=== PATIENT | male | born 1960 | race African-American/Black ===

== ENCOUNTER 2023-05-05 08:08 | Emergency (ER) | payer MEDICARE, OTHER ==
[~2023-05-05] VITALS: Ht 177.8 cm; Wt 85.0 kg
[~2023-05-05 08:08] MED LIST: AMLO2.5T45 MT; FLUO10CA28 MT; HYDR-4135 PO; HYDR12.54 MT; KEPP500 MT; LISI2.5T47 MT; SPIR25TA6 PO; TRAZ150T78 MT
[2023-05-05 08:12] VITALS: TEMP 98; O2SAT 96
[2023-05-05 09:38] LABS: BASOPHILS % 0.8 % (0.0-2.0); EOSINOPHILS % 0.7 % (0.0-5.0); HEMATOCRIT. 43.4 % (42.0-52.0); HEMOGLOBIN. 14.3 g/dL (14.0-18.0); LYMPHOCYTES % 9.2 % (20.0-50.0); MEAN CORPUSCULAR HEMOGLOBIN 30.9 pg (28.0-32.0); MEAN CORPUSCULAR HGB CONC 33.1 g/dL (31.0-37.0); MEAN CORPUSCULAR VOLUME 93.3 fL (80.0-94.0); MEAN PLATELET VOLUME 7.9 fl (7.4-10.4); MONOCYTES % 5.5 % (2.0-8.0); NEUTROPHILS % 83.8 % (40.0-76.0); PLATELET 257 x1000/uL (130-400); RED BLOOD CELL COUNT 4.65 mill/uL (4.7-6.1); RED CELL DISTRIBUTION WIDTH 14.1 % (11.6-14.6); WHITE BLOOD COUNT 8.3 x1000/uL (4.5-11.0)
[2023-05-05 09:44] LABS: CHLORIDE 104 mEq/L (98-107); INDEX HEMOLYSI 1 (1-3); INDEX ICTERIC 1 (1-4); INDEX LIPEMIC 1 (1-3); SODIUM 139 mEq/L (136-145)
[2023-05-05] MEDS ORDERED: LEVETIRACETAM 500MG PREMIX 100 ML IV ONE ×2 (09:45)
[2023-05-05] MEDS ORDERED: LORAZEPAM 2MG/ML CPJ IV ONE (09:45)
[2023-05-05 09:54] LABS: ALANINE AMINOTRANSFERASE 15 IU/L (13-61); ASPARTATE AMINOTRANSFERASE 14 IU/L (15-37); BILIRUBIN TOTAL 0.8 mg/dL (0.1-1.0); CALCIUM 8.9 mg/dL (8.5-10.1); CARBON DIOXIDE 26 mEq/L (21-32); GLUCOSE 164 mg/dL (70-105); NT PRO B-TYPE NATRIURETIC PEP 95 pg/mL (5-125); PROTEIN TOTAL 7.4 g/dL (6.0-8.3); TROPONIN I HIGH SENSITIVITY 13 ng/L (<78); UREA NITROGEN BLOOD 17 mg/dL (7-21)
[2023-05-05] MEDS ORDERED: KEPP500 MT (13:30)
[2023-05-05 14:11] VITALS: BP 154/76; PULSE 83; RESP 16
== END 2023-05-05 14:12 | disposition home or self-care (01) ==
LOC: ER 08:08
DX: R56.9 Unspecified convulsions (principal); J45.909 Unspecified asthma, uncomplicated; I10 Essential (primary) hypertension; I25.2 Old myocardial infarction; Z86.73 Personal history of transient ischemic attack (TIA), and cerebral infarction without residual deficits; Z79.899 Other long term (current) drug therapy
CPT/HCPCS: 99285; 96365; 70450; 71045; 96366; 96375; 80053; 83880; 85025; 84484; 36415; 93005; J1953; J2060

== ENCOUNTER 2023-07-22 22:40 | Emergency (ER) | payer OTHER, MEDICAID ==
[~2023-07-22] VITALS: Ht 177.8 cm; Wt 100.0 kg
[2023-07-22 22:53] VITALS: O2SAT 100
[2023-07-22] MEDS ORDERED: LEVETIRACETAM 500MG PREMIX 100 ML IV ONE (23:00)
[2023-07-22 23:15] VITALS: TEMP 98.4
[2023-07-22 23:42] LABS: HEMATOCRIT 35.6 % (42.0-52.0); HEMOGLOBIN 11.5 g/dL (14.0-18.0); MEAN CORPUSCULAR HEMOGLOBIN 29.5 pg (28.0-32.0); MEAN CORPUSCULAR HGB CONC 32.2 g/dL (31.0-37.0); MEAN CORPUSCULAR VOLUME 91.7 fL (80.0-94.0); PLATELET 277 x1000/uL (130-400); RED BLOOD CELL COUNT 3.88 mill/uL (4.7-6.1); RED CELL DISTRIBUTION WIDTH 12.4 % (11.6-14.6)
[2023-07-22 23:49] LABS: CHLORIDE 104 mEq/L (98-107); INDEX HEMOLYSI 1 (1-3); INDEX ICTERIC 1 (1-4); INDEX LIPEMIC 1 (1-3); POTASSIUM 3.1 mEq/L (3.5-5.1); SODIUM 140 mEq/L (136-145)
[2023-07-22 23:55] LABS: ALANINE AMINOTRANSFERASE 16 IU/L (13-61); ALBUMIN 3.9 g/dL (3.4-5.0); ASPARTATE AMINOTRANSFERASE 14 IU/L (15-37); BILIRUBIN TOTAL 0.6 mg/dL (0.1-1.0); CARBON DIOXIDE 28 mEq/L (21-32); CREATININE 1.1 mg/dL (0.6-1.3); ETHANOL BLOOD < 10 mg/dL (<10); GLUCOSE 114 mg/dL (70-105); PROTEIN TOTAL 7.2 g/dL (6.0-8.3); UREA NITROGEN BLOOD 12 mg/dL (7-21)
[2023-07-23] MEDS ORDERED: POTASSIUM CHLORIDE 20MEQ TABLET SR PO NR (00:15)
[2023-07-23 03:25] VITALS: BP 151/83; PULSE 73; RESP 25
== END 2023-07-23 04:00 | disposition home or self-care (01) ==
LOC: ER 22:40
DX: R56.9 Unspecified convulsions (principal); Z86.73 Personal history of transient ischemic attack (TIA), and cerebral infarction without residual deficits; Z79.899 Other long term (current) drug therapy
CPT/HCPCS: 80053; 80320; 85027; 36415; 96365; 99284; J1953; G0480

== ENCOUNTER 2024-03-04 13:31 | Emergency (ER) | payer OTHER, MEDICAID ==
[~2024-03-04] VITALS: Ht 193 cm; Wt 72.6 kg
[~2024-03-04 13:31] MED LIST changes: +AMLO10TA80 PO; -AMLO2.5T45 MT; +ASPI-1497 PO; +ATOR-2 PO; -FLUO10CA28 MT; -HYDR-4135 PO; -HYDR12.54 MT; +HYDR12.54 PO; +HYDR50TA39 PO; -KEPP500 MT; +LEVE750T4 MT; +LISI-186 PO; -LISI2.5T47 MT; +ZINC25CA PO
[2024-03-04 13:47] VITALS: O2SAT 98
[2024-03-04 14:58] LABS: BASOPHILS % 1.2 % (0.0-2.0); EOSINOPHILS % 0.7 % (0.0-5.0); HEMATOCRIT. 34.3 % (42.0-52.0); HEMOGLOBIN. 11.3 g/dL (14.0-18.0); LYMPHOCYTES % 21.1 % (20.0-50.0); MEAN CORPUSCULAR HEMOGLOBIN 29.8 pg (28.0-32.0); MEAN CORPUSCULAR HGB CONC 32.9 g/dL (31.0-37.0); MEAN CORPUSCULAR VOLUME 90.4 fL (80.0-94.0); MEAN PLATELET VOLUME 8.2 fl (7.4-10.4); MONOCYTES % 6.6 % (2.0-8.0); NEUTROPHILS % 70.4 % (40.0-76.0); PLATELET 227 x1000/uL (130-400); RED CELL DISTRIBUTION WIDTH 12.7 % (11.6-14.6); WHITE BLOOD COUNT 5.7 x1000/uL (4.5-11.0)
[2024-03-04 15:04] LABS: CHLORIDE 107 mEq/L (98-107); POTASSIUM 3.3 mEq/L (3.5-5.1); SODIUM 143 mEq/L (136-145)
[2024-03-04 15:05] LABS: CALCIUM 9.5 mg/dL (8.7-10.4); CARBON DIOXIDE 34 mEq/L (21-32)
[2024-03-04 15:10] LABS: CREATININE 0.9 mg/dL (0.6-1.3); GLUCOSE 91 mg/dL (70-105); INR 1.1; PROTHROMBIN TIME 12.1 sec (9.6-11.0); UREA NITROGEN BLOOD 13 mg/dL (9-23)
[2024-03-04 15:11] LABS: ETHANOL BLOOD < 10 mg/dL (<10)
[2024-03-04] MEDS: ACETAMINOPHEN 325MG TABLET PO STA (15:14)
[2024-03-04] MEDS: POTASSIUM CHLORIDE 20MEQ TABLET SR PO ONE (16:08)
[2024-03-04 17:16] VITALS: BP 121/68; PULSE 60; RESP 16; TEMP 98.4
== END 2024-03-04 17:18 | disposition home or self-care (01) ==
LOC: ER 13:31
DX: G40.A09 Absence epileptic syndrome, not intractable, without status epilepticus (principal); S09.90XA Unspecified injury of head, initial encounter; I10 Essential (primary) hypertension; Z79.82 Long term (current) use of aspirin; Z79.899 Other long term (current) drug therapy; Z86.73 Personal history of transient ischemic attack (TIA), and cerebral infarction without residual deficits; V49.9XXA Car occupant (driver) (passenger) injured in unspecified traffic accident, initial encounter; Y93.89 Activity, other specified; Y92.89 Other specified places as the place of occurrence of the external cause; Y99.8 Other external cause status
CPT/HCPCS: 36415; 80048; 80320; 85025; 99284; G0480

== ENCOUNTER 2024-09-24 11:41 | Emergency (ER) | payer OTHER, MEDICAID ==
[~2024-09-24] VITALS: Ht 193 cm; Wt 90.7 kg
[2024-09-24 11:46] VITALS: BP 144/88; O2SAT 99
[2024-09-24 13:05] VITALS: PULSE 88; RESP 18; TEMP 36.72516
[2024-09-24 13:52] LABS: BASOPHILS % 1.2 % (0.0-2.0); CHLORIDE 108 mEq/L (98-107); EOSINOPHILS % 1.4 % (0.0-5.0); HEMATOCRIT. 34.2 % (42.0-52.0); HEMOGLOBIN. 11.2 g/dL (14.0-18.0); LYMPHOCYTES % 23.3 % (20.0-50.0); MEAN CORPUSCULAR HEMOGLOBIN 30.2 pg (28.0-32.0); MEAN CORPUSCULAR HGB CONC 32.6 g/dL (31.0-37.0); MEAN CORPUSCULAR VOLUME 92.6 fL (80.0-94.0); MEAN PLATELET VOLUME 7.8 fl (7.4-10.4); MONOCYTES % 8.5 % (2.0-8.0); NEUTROPHILS % 65.6 % (40.0-76.0); PLATELET 276 x1000/uL (130-400); POTASSIUM 3.1 mEq/L (3.5-5.1); RED BLOOD CELL COUNT 3.69 mill/uL (4.7-6.1); RED CELL DISTRIBUTION WIDTH 12.9 % (11.6-14.6); SODIUM 142 mEq/L (136-145); WHITE BLOOD COUNT 5.4 x1000/uL (4.5-11.0)
[2024-09-24 13:53] LABS: CARBON DIOXIDE 27 mEq/L (21-32)
[2024-09-24 13:54] LABS: CALCIUM 9.8 mg/dL (8.7-10.4)
[2024-09-24 13:58] LABS: CREATININE 1.1 mg/dL (0.6-1.3); TROPONIN I HIGH SENSITIVITY 17 ng/L (3.0-53)
[2024-09-24 13:59] LABS: GLUCOSE 112 mg/dL (70-105); UREA NITROGEN BLOOD 13 mg/dL (9-23)
[2024-09-24] MEDS ORDERED: LAMO25TA71 MT (15:02)
[2024-09-24] MEDS: POTASSIUM CHLORIDE 20MEQ/PACKET PO ONE (15:11)
== END 2024-09-24 15:15 | disposition left against medical advice (07) ==
LOC: ER 12:08
DX: R56.9 Unspecified convulsions (principal); R07.89 Other chest pain; E87.6 Hypokalemia; Z79.899 Other long term (current) drug therapy
CPT/HCPCS: 36415; 71045; 80048; 82542; 82962; 84484; 85025; 93005; 99285

== ENCOUNTER 2025-03-04 03:29 | Inpatient (IN) | payer OTHER, MEDICARE ==
[~2025-03-04] VITALS: Ht 193 cm; Wt 64.9 kg
[~2025-03-04 03:29] MED LIST changes: +ASPI-1160 PO; +KEPP500 PO; +LAM25 PO; -LEVE750T4 MT; +LIP40 PO; +MAGN400T26 MT; +MEGE20TA7 MT; +METO-396 MT; +RIBO100T9 MT; +TOPUD PO
[2025-03-04 04:05] LABS: BASOPHILS % 0.8 % (0.0-2.0); HEMATOCRIT. 39.3 % (42.0-52.0); HEMOGLOBIN. 12.6 g/dL (14.0-18.0); LYMPHOCYTES % 8.1 % (20.0-50.0); MEAN CORPUSCULAR HEMOGLOBIN 28.4 pg (28.0-32.0); MEAN CORPUSCULAR VOLUME 88.7 fL (80.0-94.0); MEAN PLATELET VOLUME 8.5 fl (7.4-10.4); MONOCYTES % 5.3 % (2.0-8.0); NEUTROPHILS % 84.8 % (40.0-76.0); PLATELET 235 x1000/uL (130-400); RED BLOOD CELL COUNT 4.43 mill/uL (4.7-6.1); RED CELL DISTRIBUTION WIDTH 12.8 % (11.6-14.6); WHITE BLOOD COUNT 11.7 x1000/uL (4.5-11.0)
[2025-03-04 04:23] LABS: CHLORIDE 99 mEq/L (98-107); INR 1.1; PARTIAL THROMBOPLASTIN TIME 27.8 sec (23.4-31.0); PROTHROMBIN TIME 11.4 sec (9.6-11.0); SODIUM 140 mEq/L (136-145)
[2025-03-04 04:24] LABS: CALCIUM 9.9 mg/dL (8.7-10.4); CARBON DIOXIDE 31 mEq/L (21-32)
[2025-03-04 04:29] LABS: CREATININE 1.4 mg/dL (0.6-1.3); ETHANOL BLOOD < 10 mg/dL (<10); GLUCOSE 145 mg/dL (70-105); TROPONIN I HIGH SENSITIVITY 52 ng/L (3.0-53); UREA NITROGEN BLOOD 22 mg/dL (9-23)
[2025-03-04 04:41] LABS: POTASSIUM 2.7 mEq/L (3.5-5.1)
[2025-03-04] MEDS: ONDANSETRON HCL 4MG/2ML INJ IV STA (05:31)
[2025-03-04] MEDS: SODIUM CHLORIDE 0.9% 1,000 ML IV ONE ×2 (05:35→07:18)
[2025-03-04] MEDS: KCL 10MEQ/50ML PREMIX 50 ML IV SCH (07:17)
[2025-03-04] MEDS ORDERED: LORAZEPAM 2MG/ML INJ IV ONE (07:30)
[2025-03-04 07:31] LABS: *AMPHETAMINES SCREEN URINE NEGATIVE (NEGATIVE); *BARBITURATES SCREEN URINE NEGATIVE (NEGATIVE); *BENZODIAZEPINES SCREEN URINE NEGATIVE (NEGATIVE); *COCAINE SCREEN URINE NEGATIVE (NEGATIVE); CANNABINOID URINE SCREEN PRESUMPTIVE POSITIVE (NEGATIVE); ECSTASY MDMA SCREEN URINE NEGATIVE (NEGATIVE); METHADONE URINE SCREEN NEGATIVE (NEGATIVE); OPIATES URINE SCREEN NEGATIVE (NEGATIVE); PHENCYCLIDINE URINE SCREEN NEGATIVE (NEGATIVE)
[2025-03-04] MEDS: LORAZEPAM 2MG/ML UD SYRINGE IV NR (07:55)
[2025-03-04] MEDS: ONDANSETRON HCL 4MG/2ML INJ IV ONE (08:08)
[2025-03-04] MEDS ORDERED: LORAZEPAM 2MG/ML UD SYRINGE IV SCH (10:15)
[2025-03-04 10:17] VITALS: BP 155/97; PULSE 84; RESP 18; TEMP 36.7
[2025-03-04] MEDS ORDERED: LORAZEPAM 2MG/ML UD SYRINGE IV PRN (11:15)
[2025-03-04] MEDS ORDERED: CLONIDINE 0.1MG TABLET PO PRN (11:15)
[2025-03-04] MEDS ORDERED: IPRATROPIUM/ALBUTEROL 0.5-3(2.5)MG/3ML NEB NEB PRN (11:15)
[2025-03-04] MEDS: METOPROLOL SUCCINATE 25MG ER TABLET PO SCH (11:30)
[2025-03-04] MEDS: AMLODIPINE 10MG TABLET PO SCH (11:30)
[2025-03-04] MEDS ORDERED: ENOXAPARIN 40MG/0.4ML SYR SUBCUT SCH (11:30)
[2025-03-04 12:00] VITALS: BP 147/99; PULSE 91; RESP 20; TEMP 37.1; O2SAT 98
[2025-03-04] MEDS: LISINOPRIL 5MG TABLET PO SCH (12:00)
[2025-03-04] MEDS ORDERED: ACETAMINOPHEN 325MG TABLET PO PRN (12:00)
[2025-03-04] MEDS: SPIRONOLACTONE 25MG TABLET PO SCH (12:00)
[2025-03-04] MEDS ORDERED: LEVETIRACETAM 500MG TABLET PO SCH (12:00)
[2025-03-04] MEDS: LAMOTRIGINE 25MG TABLET PO SCH (12:00)
[2025-03-04] MEDS ORDERED: MEGESTROL ACETATE 20MG TABLET PO SCH (13:00)
[2025-03-04] MEDS: HYDRALAZINE HCL 50MG TABLET PO SCH (14:00)
[2025-03-04] MEDS: DEXT 5%/0.45% NACL 1000ML 1,000 ML IV SCH (15:11)
[2025-03-04] MEDS: POTASSIUM PHOSPHATE 20 MMOL in DEXT 5% WATER 243.3333 ML IV SCH (15:11)
[2025-03-04 15:35] LABS: CREATINE KINASE MB FRACTION 3.7 ng/mL (0.5-3.6)
[2025-03-04 16:00] VITALS: BP 167/97; PULSE 88; RESP 20; TEMP 37.7; O2SAT 97
[2025-03-04] MEDS: ENOXAPARIN 100MG/ML SYR SUBCUT NR (16:08)
[2025-03-04] MEDS ORDERED: *PATIENT'S OWN MEDICATION STORAGE XX SCH (19:45)
[2025-03-04 20:00] VITALS: BP 109/87; PULSE 94; RESP 18; TEMP 36.6; O2SAT 96
[2025-03-04] MEDS: ATORVASTATIN CALCIUM 40MG TABLET PO SCH (21:00)
[2025-03-04] MEDS ORDERED: LEVETIRACETAM 1,000MG in NACL 100ML PREMIX IV SCH (23:15)
[2025-03-04] MEDS: LACOSAMIDE 100MG/10ML ORAL SOLN GT SCH (23:18)
[2025-03-04] MEDS: LEVETIRACETAM 1000MG PREMIX 100 ML IV SCH (23:33)
[2025-03-05] VITALS: BP 169/99; PULSE 74; RESP 20; TEMP 36.2; O2SAT 97
[2025-03-05 00:11] LABS: CREATINE KINASE MB FRACTION 2.5 ng/mL (0.5-3.6)
[2025-03-05] MEDS: HYDRALAZINE 20MG/ML VIAL IV PRN (01:56)
[2025-03-05 04:00] VITALS: BP 163/76; PULSE 90; RESP 18; TEMP 36.6; O2SAT 96
[2025-03-05] MEDS: ENOXAPARIN 100MG/ML SYR SUBCUT NR (07:08)
[2025-03-05 08:00] VITALS: BP 146/80; PULSE 88; RESP 20; TEMP 37.5; O2SAT 96
[2025-03-05] MEDS ORDERED: LEVETIRACETAM 1,000MG in NACL 100ML PREMIX IV SCH (09:00)
[2025-03-05] MEDS: ASPIRIN 81MG TABLET PO SCH (09:25)
[2025-03-05] MEDS: MAGNESIUM OXIDE 400MG TABLET PO SCH (09:27)
[2025-03-05] MEDS: ENOXAPARIN 40MG/0.4ML SYR SUBCUT SCH (11:49)
[2025-03-05 12:20] VITALS: BP 155/79; PULSE 84; RESP 18; TEMP 37; O2SAT 96
[2025-03-05 17:10] VITALS: BP 134/79; PULSE 77; RESP 20; TEMP 37.1; O2SAT 95
[2025-03-05 20:00] VITALS: BP 108/72; PULSE 91; RESP 18; TEMP 36.6; O2SAT 96
[2025-03-05] MEDS: POTASSIUM CHLORIDE 20MEQ/PACKET PO SCH (21:28)
[2025-03-06] VITALS: BP 144/94; PULSE 79; RESP 18; TEMP 36.5; O2SAT 99
[2025-03-06] MEDS ORDERED: POTASSIUM CHLORIDE 20MEQ/PACKET PO SCH (01:45)
[2025-03-06 04:00] VITALS: BP 158/88; PULSE 78; RESP 18; TEMP 36.3; O2SAT 97
[2025-03-06] MEDS: POTASSIUM CHLORIDE 20MEQ/PACKET PO SCH (06:49)
[2025-03-06 08:00] VITALS: BP 162/80; PULSE 89; RESP 18; TEMP 36.6; O2SAT 97
[2025-03-06 10:48] LABS: BASOPHILS % 0.7 % (0.0-2.0); EOSINOPHILS % 0.2 % (0.0-5.0); HEMATOCRIT. 40.5 % (42.0-52.0); HEMOGLOBIN. 13.2 g/dL (14.0-18.0); LYMPHOCYTES % 11.6 % (20.0-50.0); MEAN CORPUSCULAR HEMOGLOBIN 29.1 pg (28.0-32.0); MEAN CORPUSCULAR HGB CONC 32.6 g/dL (31.0-37.0); MEAN PLATELET VOLUME 9.4 fl (7.4-10.4); MONOCYTES % 6.4 % (2.0-8.0); NEUTROPHILS % 81.1 % (40.0-76.0); PLATELET 227 x1000/uL (130-400); RED BLOOD CELL COUNT 4.55 mill/uL (4.7-6.1); RED CELL DISTRIBUTION WIDTH 13.1 % (11.6-14.6); WHITE BLOOD COUNT 8.9 x1000/uL (4.5-11.0)
[2025-03-06 10:58] LABS: CHLORIDE 99 mEq/L (98-107); POTASSIUM 3.4 mEq/L (3.5-5.1); SODIUM 139 mEq/L (136-145)
[2025-03-06 10:59] LABS: CALCIUM 9.4 mg/dL (8.7-10.4); CARBON DIOXIDE 28 mEq/L (21-32)
[2025-03-06 11:04] LABS: CREATININE 1.1 mg/dL (0.6-1.3); GLUCOSE 139 mg/dL (70-105); UREA NITROGEN BLOOD 10 mg/dL (9-23)
[2025-03-06 12:00] VITALS: BP 162/76; PULSE 91; RESP 18; TEMP 36.6; O2SAT 98
[2025-03-06 16:00] VITALS: BP 170/79; PULSE 76; RESP 18; TEMP 36.5; O2SAT 95
[2025-03-06 20:00] VITALS: BP 167/94; PULSE 78; RESP 18; TEMP 36.7; O2SAT 96
[2025-03-07] VITALS: BP 156/87; PULSE 93; RESP 18; TEMP 36.3; O2SAT 96
[2025-03-07 04:00] VITALS: BP 140/90; PULSE 90; RESP 18; TEMP 36.4; O2SAT 99
[2025-03-07 08:10] VITALS: BP 162/92; PULSE 94; RESP 18; TEMP 36.8; O2SAT 98
[2025-03-07 11:56] VITALS: BP 152/96; PULSE 94; RESP 18; TEMP 37.4; O2SAT 95
[2025-03-07 11:59] VITALS: BP 150/88; PULSE 94; TEMP 99; O2SAT 95
== END 2025-03-07 14:45 | disposition home or self-care (01) | DRG 100 ==
LOC: ER 03:29 → 8WST 07:55 → EDBEDREQTM 08:00 → EDBEDREQ 08:00 → ENRESERV 08:05
PROVIDERS: ADMIT Internal Medicine; ATTEND Internal Medicine
PROC: 4A00X4Z Measurement of Central Nervous Electrical Activity, External Approach (ICD-10-PCS; principal; 2025-03-05)
DX: G40.909 Epilepsy, unspecified, not intractable, without status epilepticus (principal); I21.4 Non-ST elevation (NSTEMI) myocardial infarction; E87.6 Hypokalemia; E78.5 Hyperlipidemia, unspecified; R29.810 Facial weakness; N18.9 Chronic kidney disease, unspecified; D64.9 Anemia, unspecified; I12.9 Hypertensive chronic kidney disease with stage 1 through stage 4 chronic kidney disease, or unspecified chronic kidney disease; D72.829 Elevated white blood cell count, unspecified; I45.10 Unspecified right bundle-branch block; R32 Unspecified urinary incontinence; Z86.73 Personal history of transient ischemic attack (TIA), and cerebral infarction without residual deficits; Z91.148 Patient's other noncompliance with medication regimen for other reason
CPT/HCPCS: 36415; 70551; 71045; 80048; 80305; 80320; 80339; 82550; 82553; 82962; 83880; 84484; 85025; 93005; 93306; 93880; 95816; 97161; 97166; 97535; 99291; A4606; J0360; J1650; J1953; J2060; J2405; J3480; J3490; J7030; J7060; G0480

== ENCOUNTER 2025-05-05 12:29 | Inpatient (IN) | payer OTHER, MEDICARE ==
[~2025-05-05] VITALS: Ht 193 cm; Wt 79.8 kg
[~2025-05-05 12:29] MED LIST changes: -AMLO10TA80 PO; -ASPI-1497 PO; -ATOR-2 PO; -MEGE20TA7 MT; -RIBO100T9 MT; -TOPUD PO
[2025-05-05 12:34] VITALS: O2SAT 99
[2025-05-05] MEDS: LORAZEPAM 2MG/ML UD SYRINGE IV NR (14:34)
[2025-05-05] MEDS: LORAZEPAM 2MG/ML UD SYRINGE ONE (14:42)
[2025-05-05 15:22] LABS: BASOPHILS % 0.9 % (0.0-2.0); EOSINOPHILS % 1.8 % (0.0-5.0); HEMATOCRIT. 37.5 % (42.0-52.0); HEMOGLOBIN. 12.1 g/dL (14.0-18.0); LYMPHOCYTES % 38.8 % (20.0-50.0); MEAN PLATELET VOLUME 9.3 fl (7.4-10.4); MONOCYTES % 9.3 % (2.0-8.0); NEUTROPHILS % 49.2 % (40.0-76.0); PLATELET 237 x1000/uL (130-400); RED BLOOD CELL COUNT 4.08 mill/uL (4.7-6.1); RED CELL DISTRIBUTION WIDTH 13.4 % (11.6-14.6)
[2025-05-05 15:23] LABS: CREATININE 1.4 mg/dL (0.6-1.3)
[2025-05-05 15:24] LABS: ETHANOL BLOOD < 10 mg/dL (<10); UREA NITROGEN BLOOD 19 mg/dL (9-23)
[2025-05-05 15:25] LABS: ASPARTATE AMINOTRANSFERASE 31 IU/L (<34)
[2025-05-05 15:26] LABS: BILIRUBIN DIRECT 0.2 mg/dL (<=3.0); BILIRUBIN TOTAL 0.6 mg/dL (0.1-1.0); PROTEIN TOTAL 7.3 g/dL (6.0-8.3)
[2025-05-05 15:27] LABS: TROPONIN I HIGH SENSITIVITY 131 ng/L (3.0-53)
[2025-05-05 15:54] LABS: CLARITY URINE CLEAR (CLEAR); GLUCOSE URINE NEGATIVE (NEGATIVE); KETONES URINE NEGATIVE (NEGATIVE); LEUKOCYTE ESTERASE URINE NEGATIVE (NEGATIVE); NITRITE URINE NEGATIVE (NEGATIVE); OCCULT BLOOD URINE TRACE (NEGATIVE); PH URINE 8.0 (4.5-8.0); PROTEIN URINE 2+ (NEGATIVE); SPECIFIC GRAVITY URINE 1.018 (1.005-1.030); UROBILINOGEN URINE 0.2 E.U./dL (0.2-1.0)
[2025-05-05] MEDS: ASPIRIN 300MG SUPP PR NR (15:57)
[2025-05-05 16:04] LABS: *AMPHETAMINES SCREEN URINE NEGATIVE (NEGATIVE); *BARBITURATES SCREEN URINE NEGATIVE (NEGATIVE); *BENZODIAZEPINES SCREEN URINE NEGATIVE (NEGATIVE); *COCAINE SCREEN URINE NEGATIVE (NEGATIVE)
[2025-05-05 16:05] LABS: CANNABINOID URINE SCREEN PRESUMPTIVE POSITIVE (NEGATIVE); ECSTASY MDMA SCREEN URINE NEGATIVE (NEGATIVE); METHADONE URINE SCREEN NEGATIVE (NEGATIVE); OPIATES URINE SCREEN NEGATIVE (NEGATIVE); PHENCYCLIDINE URINE SCREEN NEGATIVE (NEGATIVE)
[2025-05-05] MEDS: ENOXAPARIN 80MG/0.8ML SYR SUBCUT NR (16:05)
[2025-05-05 16:30] VITALS: BP_SYST 150; BP_SYST 151; BP_DIAS 83; BP_DIAS 86; PULSE 78; PULSE 88; RESP 17; RESP 18; TEMP 36.2; TEMP 36.3068
[2025-05-05 16:34] LABS: INR 1.1
[2025-05-05 16:40] LABS: COLOR URINE STRAW (YELLOW)
[2025-05-05 16:42] LABS: BACTERIA URINE NONE SEEN; MUCUS URINE TRACE /lpf (NONE/TRACE); RENAL EPITHELIAL CELLS URINE Rare /lpf; SQUAMOUS EPITHELIAL CELL URINE RARE /lpf (RARE/1+); WBC URINE 0-2 /hpf (0-2)
[2025-05-05] MEDS ORDERED: AMLO10TA80 MT (17:58)
[2025-05-05] MEDS ORDERED: PYRI50CA2 PO (18:03)
[2025-05-05] MEDS ORDERED: DIVA250T4 MT (18:03)
[2025-05-05 20:00] VITALS: BP 140/84; PULSE 74; RESP 19; TEMP 37.2; O2SAT 97
[2025-05-05] MEDS: ATORVASTATIN CALCIUM 40MG TABLET PO SCH (20:39)
[2025-05-05] MEDS: LAMOTRIGINE 25MG TABLET PO SCH (20:39)
[2025-05-05] MEDS: DIVALPROEX SODIUM 250MG DR TABLET PO SCH (20:40)
[2025-05-05] MEDS: LEVETIRACETAM 500MG TABLET PO SCH (20:40)
[2025-05-05] MEDS ORDERED: LEVETIRACETAM 1,000MG in NACL 100ML PREMIX IV SCH (21:00)
[2025-05-05] MEDS ORDERED: LEVETIRACETAM 1000MG PREMIX 100 ML IV SCH (21:00)
[2025-05-05] MEDS: ONDANSETRON HCL 4MG/2ML INJ IV PRN (22:28)
[2025-05-06] VITALS: BP 145/88; PULSE 71; RESP 18; TEMP 37; O2SAT 99
[2025-05-06 04:00] VITALS: BP 140/85; PULSE 71; RESP 19; TEMP 36.8; O2SAT 98
[2025-05-06 08:00] VITALS: BP 144/89; PULSE 71; RESP 19; TEMP 36.7; O2SAT 96
[2025-05-06] MEDS: ASPIRIN 81MG TABLET PO SCH (10:06)
[2025-05-06] MEDS: MAGNESIUM OXIDE 400MG TABLET PO SCH (10:07)
[2025-05-06] MEDS: SPIRONOLACTONE 25MG TABLET PO SCH (10:18)
[2025-05-06] MEDS: HYDRALAZINE HCL 50MG TABLET PO SCH (10:19)
[2025-05-06] MEDS: AMLODIPINE 10MG TABLET PO SCH (10:19)
[2025-05-06] MEDS: LISINOPRIL 5MG TABLET PO SCH (10:20)
[2025-05-06] MEDS: METOPROLOL SUCCINATE 25MG ER TABLET PO SCH (10:20)
[2025-05-06 12:00] VITALS: BP 131/76; PULSE 71; RESP 16; TEMP 37.1; O2SAT 98
[2025-05-06 16:00] VITALS: BP 122/74; PULSE 76; RESP 16; TEMP 36.6; O2SAT 95
[2025-05-06 20:00] VITALS: BP 151/83; PULSE 70; RESP 17; TEMP 36.6; O2SAT 95
[2025-05-07] VITALS (7 sets, daily range): BP systolic 112–146; BP diastolic 63–88; PULSE 66–73; RESP 16–21; TEMP 36.3–36.7; O2SAT 95–99
[2025-05-07] MEDS: LAMOTRIGINE 100MG TABLET PO SCH (20:56)
[2025-05-08] VITALS: BP 127/67; PULSE 67; RESP 19; TEMP 36.5; O2SAT 97
[2025-05-08 04:00] VITALS: BP 139/79; PULSE 67; RESP 19; TEMP 36.7; O2SAT 99
[2025-05-08 08:00] VITALS: BP 149/86; PULSE 65; RESP 16; TEMP 36.4; O2SAT 96
[2025-05-08 12:00] VITALS: BP 135/80; PULSE 65; RESP 15; TEMP 37.2; O2SAT 100
[2025-05-08 15:43] VITALS: BP 134/84; PULSE 77; RESP 18; TEMP 98.9
[2025-05-08 16:00] VITALS: BP 104/46; PULSE 51; RESP 18; TEMP 35.9; O2SAT 97
== END 2025-05-08 18:15 | disposition home health service (06) | DRG 101 ==
LOC: ER 12:48 → 6WST 15:40 → EDBEDREQTM 15:45 → EDBEDREQ 15:45
PROVIDERS: ADMIT Internal Medicine; ATTEND Internal Medicine
PROC: 4A00X4Z Measurement of Central Nervous Electrical Activity, External Approach (ICD-10-PCS; principal; 2025-05-06)
DX: G40.909 Epilepsy, unspecified, not intractable, without status epilepticus (principal); I10 Essential (primary) hypertension; Z86.73 Personal history of transient ischemic attack (TIA), and cerebral infarction without residual deficits
CPT/HCPCS: 36415; 71045; 80048; 80076; 80165; 80305; 80320; 81003; 82962; 83735; 84484; 85025; 93005; 93970; 95816; 97162; 97535; 99291; J1650; J2060; J2405; G0480